=== PATIENT | female | born 1980 ===

== ENCOUNTER 2022-07-27 08:28 | Outpatient (CLI) | payer OTHER | END 2022-07-27 08:36 | disposition home or self-care (01) | LOC: SONOGRAMA 08:28 | PROVIDERS: ATTEND Obstetrics & Gynecology Gynecology | DX: R10.2 Pelvic and perineal pain (principal); N92.1 Excessive and frequent menstruation with irregular cycle; D25.1 Intramural leiomyoma of uterus ==